=== PATIENT | female | born 1975 | race Caucasian/White ===

== ENCOUNTER 2019-01-26 23:38 | Emergency (ER) | payer BC ==
[~2019-01-26] VITALS: Ht 167.6 cm; Wt 95.0 kg
[~2019-01-26 23:38] MED LIST: IBUP-1542 PO; IBUP-1561 PO
[2019-01-26 23:52] VITALS: BP 108/60; PULSE 73; RESP 18; Ht 167.6 cm; Wt 95.0 kg
[2019-01-27] MEDS ORDERED: LORAZEPAM 1 MG TAB PO ONE (01:00)
[2019-01-27] MEDS ORDERED: LIDOCAINE 1% (MDV) 20 ML INJ SC ONE (01:00)
== END 2019-01-27 01:42 | disposition home or self-care (01) ==
LOC: FTE 23:38
DX: T16.1XXA Foreign body in right ear, initial encounter (principal); X58.XXXA Exposure to other specified factors, initial encounter; Y92.9 Unspecified place or not applicable
CPT/HCPCS: 99283